=== PATIENT | female | born 1965 | race Hispanic/Latino ===

== ENCOUNTER 2025-05-26 08:08 | Day surgery (SDC) | payer BC ==
[2025-05-26] VITALS (10 sets, daily range): BP systolic 87–114; BP diastolic 47–71; PULSE 61–74; RESP 15–17; TEMP 97.5–98.4
[~2025-05-26] VITALS: Ht 154.9 cm; Wt 73.0 kg
[~2025-05-26 08:08] MED LIST: ASPI-1005 PO; ATOR40TA69 PO; ERGO500093 PO; LEVO100C5 PO; LISI10TA24 PO; LORA10TA7 PO; MELO-106 PO; SEMA2PEN SQ
[2025-05-26] MEDS: 0.9%NACL 1000ML 1,000 ML IV ONE (08:57)
== END 2025-05-26 11:35 | disposition home or self-care (01) ==
LOC: DAH 08:08 → ENDO 08:08
PROVIDERS: ATTEND Internal Medicine Gastroenterology
DX: Z12.11 Encounter for screening for malignant neoplasm of colon (principal); K62.1 Rectal polyp; E11.9 Type 2 diabetes mellitus without complications; K76.0 Fatty (change of) liver, not elsewhere classified; R94.5 Abnormal results of liver function studies; E03.9 Hypothyroidism, unspecified; E78.00 Pure hypercholesterolemia, unspecified; Z90.710 Acquired absence of both cervix and uterus; Z79.899 Other long term (current) drug therapy
CPT/HCPCS: 82948 ×2; 45385; J7030 ×2; J2704; A4620; A7002; J3490